=== PATIENT | female | born 1965 | race Caucasian/White ===

== ENCOUNTER → 2024-11-29 13:05 | Outpatient (CLI) | payer MEDICARE, SELFPAY | LOC: RESP 13:11 | PROVIDERS: PCP Physician Assistant Medical; Referring Provider Internal Medicine Interventional Cardiology; Visit Provider Internal Medicine Interventional Cardiology | DX: J44.9 Chronic obstructive pulmonary disease, unspecified (principal); F17.210 Nicotine dependence, cigarettes, uncomplicated; R94.2 Abnormal results of pulmonary function studies | CPT/HCPCS: 94060; 94726; 94729 ==

== ENCOUNTER → 2024-12-08 08:11 | Outpatient (CLI) | payer MEDICARE, SELFPAY ==
--- NOTE | 2024-12-08 08:12 | DI.US.S_ITS ---
PROCEDURE: US ARTERIAL DUPLEX LE BI INDICATIONS: PAD TECHNIQUE: Color and pulse Doppler interrogation was performed of both lower extremity arterial systems, with image documentation. COMPARISON: None. FINDINGS: Right lower extremity: Common femoral artery: 123 cm/sec, with biphasic flow. Deep femoral artery: 97 cm/sec, with biphasic flow. Proximal superficial femoral artery: 131 cm/sec, with biphasic flow. Mid superficial femoral artery: 105 cm/sec, with biphasic flow. Distal superficial femoral artery: 118 cm/sec, with biphasic flow. Popliteal artery: 62-90 cm/sec, with biphasic flow. Posterior tibial artery: 63-87 cm/sec, with biphasic flow. Anterior tibial artery/dorsalis pedis: 37-41/32 cm/sec, with biphasic flow. Crowder-scale imaging description: No significant atherosclerotic plaque. Left lower extremity: Common femoral artery: 125 cm/sec, with biphasic flow. Deep femoral artery: 72 cm/sec, with biphasic flow. Proximal superficial femoral artery: 110 cm/sec, with biphasic flow. Mid superficial femoral artery: 93 cm/sec, with biphasic flow. Distal superficial femoral artery: 110 cm/sec, with biphasic flow. Popliteal artery: 61-70 cm/sec, with biphasic flow. Posterior tibial artery: 52-66 cm/sec, with biphasic flow. Anterior tibial artery/dorsalis pedis: 40-49/19 cm/sec, with biphasic flow. Crowder-scale imaging description: No significant atherosclerotic plaque. IMPRESSION: Patent lower extremity vasculature. No hemodynamically significant stenosis. Dictated by: Keon Padgett M.D. on 12/08/2024 at 11:11 Approved by: Keon Padgett M.D. on 12/08/2024 at 11:14
== END ==
LOC: US 08:12
PROVIDERS: PCP Physician Assistant Medical; Referring Provider Internal Medicine Interventional Cardiology; Visit Provider Internal Medicine Interventional Cardiology
DX: I73.9 Peripheral vascular disease, unspecified (principal)
CPT/HCPCS: 93925